=== PATIENT | male | born 1990 | race Caucasian/White ===

== ENCOUNTER → 2016-06-22 | Outpatient (CLI) | payer OTHER, BC ==
[~2016-06-22] MED LIST: HYDR25TA85 PO; NO DAILY MEDS
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
== END ==
LOC: IMA.CCC 15:32
PROVIDERS: ATTEND Nurse Practitioner
DX: Z03.89 Encounter for observation for other suspected diseases and conditions ruled out (principal)